=== PATIENT | male | born 1995 | race Caucasian/White ===

== ENCOUNTER 2020-07-10 06:03 | Emergency (ER) | payer SELFPAY ==
[~2020-07-10] VITALS: Ht 182.9 cm; Wt 77.2 kg
[2020-07-10 06:04] VITALS: BP 121/89
--- NOTE | 2020-07-10 06:53 | ED.ADGEN ---
Past Medical History Past Medical History: Anxiety, Depression, Other Additional Past Medical Histor: PTSD Past Surgical History: No Surgical History Smoking Status: Current Every Day Smoker Alcohol Use: Occasionally General Adult EDM: Chief Complaint: FINGER INJURY HPI: HPI: Patient is 24-year-old male who accidentally got his second and third left finger slammed in a metal door this morning. He states initially there was a lot of bleeding which is now resolved. She denies any other injuries. He states that there is a throbbing pain that is been constant since it started. It is not gotten any worse. Review of Systems: Review of Systems: Negative other than noted Allergies: Allergies: Allergies Coded Allergies Type Severity Reaction Last Updated Verified No Known Drug Allergies 07/10/20 No Physical Exam: PE: General: Awake, alert, NAD. Well Nourished, well hydrated. Cooperative HEENT: Atraumatic, EOMI, PERRL, airway patent, moist oral mucosa Neck: Supple, trachea midline MSK: No obvious deformities Skin: Warm, dry. Left hand: Minimal swelling to second and third distal fingers with avulsion superficial lacerations to both fingers near the the nail Neuro: A&O x3, speech NL, sensory and motor grossly intact, no focal deficits Psych: Normal affect, normal mood, not suicidal or homicidal Current Patient Data: Vital Signs: Vital Signs Date Time Temp Pulse Resp B/P (MAP) Pulse Ox O2 Delivery O2 Flow Rate FiO2 07/10/20 06:04 99.3 100 20 121/89 (100) 98 Room Air 99.3 EKG: EKG: [] Heart Score: Risk Factors: Risk Factors: DM, Current or recent (<one month) smoker, HTN, HLP, family history of CAD, obesity. Risk Scores: Score 0 - 3: 2.5% MACE over next 6 weeks - Discharge Home Score 4 - 6: 20.3% MACE over next 6 weeks - Admit for Clinical Observation Score 7 - 10: 72.7% MACE over next 6 weeks - Early Invasive Strategies Radiology/Procedures: Radiology/Procedures: [] Course & Med Decision Making: Course & Med Decision Making Pertinent Labs and Imaging studies reviewed. (See chart for details) Wounds were cleaned and the flaps were put back together with Dermabond. We discussed that it is possible the flaps may . There is no sutures needed at this time. Tetanus is up-to-date. There is no signs of fracture. Patient has full range of motion and sensation. Patient's test results and vitals while in the ED were fully reviewed and discussed with the patient. Patient is stable and at this time does not need admission to the hospital. We have discussed strict return precautions and the importance of following up with their Primary Care Physician. Patient stated understanding and was given an opportunity to ask any questions. Patient is in agreement with plan. Dragon Disclaimer: Dragon Disclaimer: This electronic medical record was generated, in whole or in part, using a voice recognition dictation system. PROCEDURE Procedure Laceration Repair Performed by: Sid Lanza MD Consent: obtained verbally from patient. Risks and benefits were discussed prior to consent Time out performed prior to procedure Location: Second and third finger Length: 1 cm Foreign bodies: No foreign bodies Tendon involvement: none Neurovascularly intact Preparation: Patient was prepped and draped in usual sterile fashion. Wound was cleaned extensively with water Amount of clean: normal Deep stitches: no Skin closure: dermabond Approximation: closed Patient tolerated procedure well Departure Departure Impression: Primary Impression: Crushing injury of finger(s) Disposition: 01 DC HOME SELF CARE/HOMELESS Condition: STABLE Referrals: NO PCP (PCP) Patient Instructions: Crush Injury, Fingers or Toes, Fingertip Laceration SID LANZA MD Jul 10, 2020 06:52
== END 2020-07-10 07:15 | disposition home or self-care (01) ==
LOC: ER 06:03
DX: S67.191A Crushing injury of left index finger, initial encounter (principal); S67.193A Crushing injury of left middle finger, initial encounter; F17.200 Nicotine dependence, unspecified, uncomplicated; W23.0XXA Caught, crushed, jammed, or pinched between moving objects, initial encounter; Y93.89 Activity, other specified; Y92.89 Other specified places as the place of occurrence of the external cause; Y99.8 Other external cause status
CPT/HCPCS: 12001; 99282